=== PATIENT | male | born 1960 | race African-American/Black ===

== ENCOUNTER 2016-10-17 14:51 | Inpatient (IN) | payer OTHER ==
[2016-10-17 16:26] VITALS: BMI 24.9
--- NOTE | 2016-10-17 17:52 | HP ---
Admission ROS S - [facility] Chief Complaint: I WANT TO GO TO REHAB Allergies/Adverse Reactions: Allergies Allergy/AdvReac Type Severity Reaction Status Date / Time No Known Allergies Allergy Verified 10/17/16 17:25 History of Present Illness: 55 YEARS OLD MALE WITH LONG HISTORY OF ALCOHOL HEROIN NICOTINE DEPENDENCE, HYPERTENSION DENIES MENTAL ILLNESS IS ADMITTED TO REHAB Exam Limitations: No Limitations - Ebola screening Have you traveled outside of the country in the last 21 days: No (N) Have you had contact with anyone from an Ebola affected area: No Have you been sick,other than usual withdrawal symptoms: No Do you have a fever: No - Review of Systems Constitutional: Unintentional Wgt. Loss EENT: reports: No Symptoms Reported Respiratory: reports: No Symptoms reported Cardiac: reports: No Symptoms Reported GI: reports: No Symptoms Reported : reports: No Symptoms Reported Musculoskeletal: reports: No Symptoms Reported Integumentary: reports: No Symptoms Reported Neuro: reports: No Symptoms reported Endocrine: reports: Intolerance to Cold Hematology: reports: No Symptoms Reported Psychiatric: reports: Judgement Intact, Mood/Affect Appropiate, Orientated x3 Other Systems: Reviewed and Negative Patient History - Patient Medical History Hx Anemia: No Hx Asthma: No Hx Chronic Obstructive Pulmonary Disease (COPD): No Hx Cancer: No Hx Cardiac Disorders: No Hx Congestive Heart Failure: No Hx Hypertension: No Hx Hypercholesterolemia: No Hx Pacemaker: No HX Cerebrovascular Accident: No Hx Seizures: No Hx Dementia: No Hx Diabetes: No Hx Gastrointestinal Disorders: No Hx Liver Disease: No Hx Genitourinary Disorders: No Hx Sexually Transmitted Disorders: Yes (gonorrhea at age 16) Hx Renal Disease (ESRD): No Hx Thyroid Disease: No Hx Human Immunodeficiency Virus (HIV): No (LAST 04/13 NEGATIVE) Hx Hepatitis C: Yes Hx Depression: Yes (ON CELEXA) Hx Suicide Attempt: No (DENIES) Hx Bipolar Disorder: No Hx Schizophrenia: No - Patient Surgical History Past Surgical History: Yes Hx Neurologic Surgery: No Hx Cataract Extraction: No Hx Cardiac Surgery: No Hx Lung Surgery: No Hx Breast Surgery: No Hx Breast Biopsy: No Hx Abdominal Surgery: Yes (umbilical hernia repair in 1997) Hx Appendectomy: No Hx Cholecystectomy: No Hx Genitourinary Surgery: No Hx Orthopedic Surgery: No Other Surgical History: UMBILICAL HERNIA -1997 Anesthesia Reaction: No - PPD History Previous Implant?: Yes Documented Results: Negative w/proof Implanted On Prior [facility] Admission?: Yes Date: 06/20/16 Results: 0 mm PPD to be Administered?: No - Smoking Cessation Smoking history: Current every day smoker Have you smoked in the past 12 months: Yes Aproximately how many cigarettes per day: 15 Cigars Per Day: 0 Hx Chewing Tobacco Use: No Initiated information on smoking cessation: Yes 'Breaking Loose' booklet given: 10/17/16 - Substance & Tx. History Hx Alcohol Use: Yes Hx Substance Use: Yes Substance Use Type: Alcohol, Cocaine, Heroin, Marijuana Hx Substance Use Treatment: Yes - Substances Abused Alcohol Route: Oral Frequency: Daily Amount used: FITH VOLKA Age of first use: 12 Date of Last Use: 10/12/16 Heroin Route: Inhalation Frequency: Daily Amount used: 10-12 BAGS Age of first use: 15 Date of Last Use: 10/12/16 Family Disease History - Family Disease History Family Disease History: CA: Mother (RECOVERING FROM BREAST CA.), Other: Father ( ETOH DEPENDENT) Admission Physical Exam S - Vital Signs Vital Signs: Vital Signs - 24 hr 10/17/16 16:23 Temperature 95.9 F L Pulse Rate 62 Respiratory 16 Rate Blood Pressure 150/100 - Physical General Appearance: Yes: No Apparent Distress, Appropriately Dressed, Thin HEENTM: Yes: Hearing grossly Normal, Normal ENT Inspection, Normocephalic, Normal Voice Respiratory: Yes: Chest Non-Tender, Lungs Clear, Normal Breath Sounds, No Respiratory Distress, No Accessory Muscle Use Neck: Yes: Supple, Trachea in good position Breast: Yes: Breasts Symetrical Cardiology: Yes: Regular Rhythm, Regular Rate, S1, S2 Abdominal: Yes: Normal Bowel Sounds, Non Tender, Soft Genitourinary: Yes: Within Normal Limits Back: Yes: Normal Inspection Musculoskeletal: Yes: full range of Motion, Gait Steady Extremities: Yes: Normal Range of Motion, Non-Tender Neurological: Yes: Fully Oriented, Alert, Motor Strength 5/5, Normal Response, Depressed Affect Integumentary: Yes: Dry, Warm Lymphatic: Yes: Within Normal Limits - Diagnostic (1) Alcohol dependence with uncomplicated withdrawal Current Visit: Yes Status: Acute (2) Nicotine dependence Current Visit: Yes Status: Acute Qualifiers: Nicotine product type: cigarettes Substance use status: uncomplicated Qualified Code(s): F17.210 - Nicotine dependence, cigarettes, uncomplicated (3) Opioid dependence with withdrawal Current Visit: Yes Status: Acute (4) Weight loss Current Visit: Yes Status: Acute (5) HTN (hypertension) Current Visit: Yes Status: Chronic Qualifiers: Hypertension type: essential hypertension Qualified Code(s): I10 - Essential (primary) hypertension (6) Hepatitis C Current Visit: Yes Status: Chronic Qualifiers: Viral hepatitis chronicity: chronic Hepatic coma status: without hepatic coma Qualified Code(s): B18.2 - Chronic viral hepatitis C (7) Depressive disorder Current Visit: Yes Status: Suspected (8) Dental neglect Current Visit: Yes Status: Chronic Comment: UPPER TEETH MISSING Cleared for Admission S - Detox or Rehab [facility] Level of Care: Observation Bed Claeared for Rehab Admission: Yes [facility] Breath Alcohol Content Breath Alcohol Content: 0 Vital Signs - Vital Signs Vital Signs Refused: No Temperature: 95.9 F Temperature Source: Oral Pulse Rate: 62 Respiratory Rate: 16 Blood Pressure: 150/100 BP Location: Left Arm Blood Pressure Position: Sitting - Height Height: 5 ft 7 in - Weight Weight: 159 lb Weight Measurement Method: Standing Scale Body Mass Index (BMI): 24.9 - Bowel Function Bowel Movement: Yes Urine Drug Screen - Control Is Test Valid: Yes - Results Drug Screen Negative: No Urine Drug Screen Results: THC-Marijuana, BZO-Benzodiazepines, MTD-Methadone
[2016-10-17] MEDS ORDERED: IBUPROFEN 400 MG TABLET (FP) PO PRN (17:53)
[2016-10-17] MEDS ORDERED: MAGNESIUM CITRATE 300 ML BOTTLE PO PRN (17:53)
[2016-10-17] MEDS ORDERED: MAG HYDROX/AL HYDROX/SIMETH 30 ML UNIT-DOSE CUP PO PRN (17:53)
[2016-10-17] MEDS ORDERED: ACETAMINOPHEN 325 MG TABLET (FP) PO PRN (17:53)
[2016-10-17] MEDS ORDERED: P-EPHED 60MG/TRIPROLIDI 2.5MG TABLET PO PRN (17:53)
[2016-10-17] MEDS ORDERED: NICOTINE POLACRILEX 2 MG GUM BC PRN (17:53)
[2016-10-17] MEDS ORDERED: hydrOXYzine PAMOATE 50 MG CAPSULE (FP) PO PRN (17:53)
[2016-10-17] MEDS ORDERED: MAGNESIUM HYDROX 2400MG/30ML ORAL SUSPENSION 30 ML CUP PO PRN (17:53)
[2016-10-17] MEDS ORDERED: guaiFENesin/D-METHORPHAN HB 10 ML UNIT-DOSE CUPS PO PRN (17:53)
[2016-10-17] MEDS ORDERED: MENTHOL/PHENOL 1 EACH UD MM PRN (17:53)
[2016-10-17] MEDS: THIAMINE HCL 100 MG TABLET (FP) PO SCH (22:19)
[2016-10-17] MEDS: diphenhydrAMINE HCL 50 MG CAPSULE PO PRN (22:19)
[2016-10-17] MEDS: COLLOIDAL OATMEAL 1 BAR EACH TP PRN (22:20)
[2016-10-17] MEDS: MINERAL OIL/PETROLAT/WATER TOPICAL CREAM 113 GM JAR TP SCH (22:22)
[2016-10-17 22:47] LABS: URINE APPEARANCE SLCLOUDY; URINE BILIRUBIN NEGATIVE (NEGATIVE); URINE BLOOD NEGATIVE (NEGATIVE); URINE COLOR YELLOW; URINE GLUCOSE (UA) NEGATIVE (NEGATIVE); URINE KETONE NEGATIVE (NEGATIVE); URINE NITRITE NEGATIVE (NEGATIVE); URINE PROTEIN NEGATIVE (NEGATIVE); URINE UROBILINOGEN NEGATIVE E.U./dl (0.2-1.0)
[2016-10-17 22:54] LABS: URINE LEUK ESTERASE TRACE (NEGATIVE)
[2016-10-17 23:16] LABS: URINE WBC 1 /hpf (3-5)
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
[2016-10-18] MEDS: PRENATAL VITAMINS W/ FOLIC ACID TABLET (FP) PO SCH (10:06)
[2016-10-18] MEDS: NICOTINE 21 MG/24 HOURS TOPICAL PATCH TD SCH (10:07)
[2016-10-18 10:29] LABS: MCH 31.6 pg (25.7-33.7); MCHC 33.2 g/dl (32.0-35.9); MEAN CELL VOLUME 95.3 fl (80-96); MEAN PLT VOLUME 9.1 fl (7.5-11.1); PLATELET COUNT 194 K/MM3 (134-434); RDW 14.6 % (11.9-15.9); WHITE BLOOD COUNT 4.7 K/mm3 (4.0-10.0)
[2016-10-18 10:47] LABS: ALBUMIN 3.7 g/dl (3.4-5.0); CALCIUM 8.6 mg/dL (8.5-10.1); CREATININE 1.3 mg/dL (0.7-1.3)
[2016-10-18 10:49] LABS: BILIRUBIN,TOTAL 0.5 mg/dL (0.2-1.0); TOT PROT 6.9 g/dl (6.4-8.2)
[2016-10-18] MEDS: CITALOPRAM HYDROBROMIDE 10 MG TABLET (FP) PO SCH (12:33)
[2016-10-18] MEDS: MINERAL OIL/PETROLAT/WATER TOPICAL CREAM 113 GM JAR TP SCH (21:21)
[2016-10-18] MEDS: THIAMINE HCL 100 MG TABLET (FP) PO SCH (21:21)
[2016-10-18] MEDS: diphenhydrAMINE HCL 50 MG CAPSULE PO PRN (21:21)
[2016-10-19] MEDS: CITALOPRAM HYDROBROMIDE 10 MG TABLET (FP) PO SCH (10:00)
[2016-10-19] MEDS: PRENATAL VITAMINS W/ FOLIC ACID TABLET (FP) PO SCH (10:00)
[2016-10-19] MEDS: NICOTINE 21 MG/24 HOURS TOPICAL PATCH TD SCH (10:01)
[2016-10-19] MEDS: MINERAL OIL/PETROLAT/WATER TOPICAL CREAM 113 GM JAR TP SCH (22:09)
[2016-10-19] MEDS: THIAMINE HCL 100 MG TABLET (FP) PO SCH (22:09)
[2016-10-20] MEDS: PRENATAL VITAMINS W/ FOLIC ACID TABLET (FP) PO SCH (09:52)
[2016-10-20] MEDS: NICOTINE 21 MG/24 HOURS TOPICAL PATCH TD SCH (09:53)
[2016-10-20] MEDS: CITALOPRAM HYDROBROMIDE 10 MG TABLET (FP) PO SCH (09:53)
[2016-10-20] MEDS: THIAMINE HCL 100 MG TABLET (FP) PO SCH (21:30)
[2016-10-20] MEDS: diphenhydrAMINE HCL 50 MG CAPSULE PO PRN (21:30)
[2016-10-20] MEDS: MINERAL OIL/PETROLAT/WATER TOPICAL CREAM 113 GM JAR TP SCH (21:31)
[2016-10-21] MEDS: PRENATAL VITAMINS W/ FOLIC ACID TABLET (FP) PO SCH (10:05)
[2016-10-21] MEDS: CITALOPRAM HYDROBROMIDE 10 MG TABLET (FP) PO SCH (10:05)
[2016-10-21] MEDS: NICOTINE 21 MG/24 HOURS TOPICAL PATCH TD SCH (10:06)
[2016-10-21] MEDS: MINERAL OIL/PETROLAT/WATER TOPICAL CREAM 113 GM JAR TP SCH (21:29)
[2016-10-21] MEDS: diphenhydrAMINE HCL 50 MG CAPSULE PO PRN (21:29)
[2016-10-21] MEDS: THIAMINE HCL 100 MG TABLET (FP) PO SCH (21:29)
[2016-10-22] MEDS: CITALOPRAM HYDROBROMIDE 10 MG TABLET (FP) PO SCH (10:00)
[2016-10-22] MEDS: NICOTINE 21 MG/24 HOURS TOPICAL PATCH TD SCH (10:01)
[2016-10-22] MEDS: PRENATAL VITAMINS W/ FOLIC ACID TABLET (FP) PO SCH (10:01)
[2016-10-22] MEDS: THIAMINE HCL 100 MG TABLET (FP) PO SCH (21:46)
[2016-10-22] MEDS: diphenhydrAMINE HCL 50 MG CAPSULE PO PRN (21:46)
[2016-10-22] MEDS: cloNIDine HCL 0.1 MG TABLET PO PRN (21:47)
[2016-10-22] MEDS: MINERAL OIL/PETROLAT/WATER TOPICAL CREAM 113 GM JAR TP SCH (22:15)
[2016-10-23] MEDS: PRENATAL VITAMINS W/ FOLIC ACID TABLET (FP) PO SCH (10:07)
[2016-10-23] MEDS: CITALOPRAM HYDROBROMIDE 10 MG TABLET (FP) PO SCH (10:07)
[2016-10-23] MEDS: NICOTINE 21 MG/24 HOURS TOPICAL PATCH TD SCH (10:07)
[2016-10-23] MEDS: diphenhydrAMINE HCL 50 MG CAPSULE PO PRN (21:28)
[2016-10-23] MEDS: THIAMINE HCL 100 MG TABLET (FP) PO SCH (21:28)
[2016-10-23] MEDS: MINERAL OIL/PETROLAT/WATER TOPICAL CREAM 113 GM JAR TP SCH (21:29)
[2016-10-23] MEDS: cloNIDine HCL 0.1 MG TABLET PO PRN (21:29)
[2016-10-24] MEDS: NICOTINE 21 MG/24 HOURS TOPICAL PATCH TD SCH (10:07)
[2016-10-24] MEDS: CITALOPRAM HYDROBROMIDE 10 MG TABLET (FP) PO SCH (10:07)
[2016-10-24] MEDS: PRENATAL VITAMINS W/ FOLIC ACID TABLET (FP) PO SCH (10:07)
[2016-10-24] MEDS: LOPERAMIDE HCL 2 MG CAPSULE PO PRN (14:29)
[2016-10-24] MEDS: diphenhydrAMINE HCL 50 MG CAPSULE PO PRN (21:25)
[2016-10-24] MEDS: THIAMINE HCL 100 MG TABLET (FP) PO SCH (21:25)
[2016-10-24] MEDS: cloNIDine HCL 0.1 MG TABLET PO PRN (21:25)
[2016-10-24] MEDS: MINERAL OIL/PETROLAT/WATER TOPICAL CREAM 113 GM JAR TP SCH (21:25)
[2016-10-25] MEDS: PRENATAL VITAMINS W/ FOLIC ACID TABLET (FP) PO SCH (09:49)
[2016-10-25] MEDS: NICOTINE 21 MG/24 HOURS TOPICAL PATCH TD SCH (09:49)
[2016-10-25] MEDS: CITALOPRAM HYDROBROMIDE 10 MG TABLET (FP) PO SCH (09:49)
[2016-10-25 20:03] LABS: URINE APPEARANCE CLEAR; URINE BILIRUBIN NEGATIVE (NEGATIVE); URINE BLOOD NEGATIVE (NEGATIVE); URINE COLOR YELLOW; URINE GLUCOSE (UA) NEGATIVE (NEGATIVE); URINE KETONE NEGATIVE (NEGATIVE); URINE NITRITE NEGATIVE (NEGATIVE); URINE PROTEIN NEGATIVE (NEGATIVE); URINE UROBILINOGEN NEGATIVE E.U./dl (0.2-1.0)
[2016-10-25 20:04] LABS: URINE LEUK ESTERASE TRACE (NEGATIVE)
[2016-10-25 20:15] LABS: URINE MUCUS RARE; URINE RBC 3 /hpf (0-3); URINE WBC 5 /hpf (3-5)
[2016-10-25] MEDS: THIAMINE HCL 100 MG TABLET (FP) PO SCH (21:26)
[2016-10-25] MEDS: diphenhydrAMINE HCL 50 MG CAPSULE PO PRN (21:26)
[2016-10-25] MEDS: cloNIDine HCL 0.1 MG TABLET PO PRN (21:26)
[2016-10-25] MEDS: MINERAL OIL/PETROLAT/WATER TOPICAL CREAM 113 GM JAR TP SCH (21:28)
[2016-10-26] MEDS: PRENATAL VITAMINS W/ FOLIC ACID TABLET (FP) PO SCH (09:49)
[2016-10-26] MEDS: NICOTINE 21 MG/24 HOURS TOPICAL PATCH TD SCH (09:49)
[2016-10-26] MEDS: CITALOPRAM HYDROBROMIDE 10 MG TABLET (FP) PO SCH (09:49)
[2016-10-26] MEDS: COLLOIDAL OATMEAL 1 BAR EACH TP PRN (21:22)
[2016-10-26] MEDS: THIAMINE HCL 100 MG TABLET (FP) PO SCH (21:24)
[2016-10-26] MEDS: diphenhydrAMINE HCL 50 MG CAPSULE PO PRN (21:24)
[2016-10-26] MEDS: cloNIDine HCL 0.1 MG TABLET PO PRN (21:24)
[2016-10-26] MEDS: MINERAL OIL/PETROLAT/WATER TOPICAL CREAM 113 GM JAR TP SCH (21:25)
[2016-10-27] MEDS: CITALOPRAM HYDROBROMIDE 10 MG TABLET (FP) PO SCH (09:44)
[2016-10-27] MEDS: PRENATAL VITAMINS W/ FOLIC ACID TABLET (FP) PO SCH (09:44)
[2016-10-27] MEDS: NICOTINE 21 MG/24 HOURS TOPICAL PATCH TD SCH (09:45)
[2016-10-27] MEDS: THIAMINE HCL 100 MG TABLET (FP) PO SCH (21:20)
[2016-10-27] MEDS: diphenhydrAMINE HCL 50 MG CAPSULE PO PRN (21:20)
[2016-10-27] MEDS: cloNIDine HCL 0.1 MG TABLET PO PRN (21:20)
[2016-10-27] MEDS: MINERAL OIL/PETROLAT/WATER TOPICAL CREAM 113 GM JAR TP SCH (21:36)
[2016-10-28] MEDS: CITALOPRAM HYDROBROMIDE 10 MG TABLET (FP) PO SCH (09:53)
[2016-10-28] MEDS: PRENATAL VITAMINS W/ FOLIC ACID TABLET (FP) PO SCH (09:53)
[2016-10-28] MEDS: NICOTINE 21 MG/24 HOURS TOPICAL PATCH TD SCH (09:53)
[2016-10-28] MEDS: COLLOIDAL OATMEAL 1 BAR EACH TP PRN (20:53)
[2016-10-28] MEDS: THIAMINE HCL 100 MG TABLET (FP) PO SCH (21:42)
[2016-10-28] MEDS: diphenhydrAMINE HCL 50 MG CAPSULE PO PRN (21:42)
[2016-10-28] MEDS: cloNIDine HCL 0.1 MG TABLET PO PRN (21:42)
[2016-10-28] MEDS: MINERAL OIL/PETROLAT/WATER TOPICAL CREAM 113 GM JAR TP SCH (21:43)
[2016-10-29] MEDS: LOPERAMIDE HCL 2 MG CAPSULE PO PRN ×2 (03:53→09:49)
[2016-10-29] MEDS: CITALOPRAM HYDROBROMIDE 10 MG TABLET (FP) PO SCH (09:48)
[2016-10-29] MEDS: PRENATAL VITAMINS W/ FOLIC ACID TABLET (FP) PO SCH (09:49)
[2016-10-29] MEDS: NICOTINE 21 MG/24 HOURS TOPICAL PATCH TD SCH (09:49)
[2016-10-29] MEDS: diphenhydrAMINE HCL 50 MG CAPSULE PO PRN (21:32)
[2016-10-29] MEDS: THIAMINE HCL 100 MG TABLET (FP) PO SCH (21:32)
[2016-10-29] MEDS: cloNIDine HCL 0.1 MG TABLET PO PRN (21:32)
[2016-10-29] MEDS: MINERAL OIL/PETROLAT/WATER TOPICAL CREAM 113 GM JAR TP SCH (22:32)
[2016-10-30] MEDS: LOPERAMIDE HCL 2 MG CAPSULE PO PRN (07:34)
[2016-10-30] MEDS: PRENATAL VITAMINS W/ FOLIC ACID TABLET (FP) PO SCH (09:41)
[2016-10-30] MEDS: NICOTINE 21 MG/24 HOURS TOPICAL PATCH TD SCH (09:41)
[2016-10-30] MEDS: CITALOPRAM HYDROBROMIDE 10 MG TABLET (FP) PO SCH (09:41)
[2016-10-30] MEDS: diphenhydrAMINE HCL 50 MG CAPSULE PO PRN (21:11)
[2016-10-30] MEDS: cloNIDine HCL 0.1 MG TABLET PO PRN (21:11)
[2016-10-30] MEDS: THIAMINE HCL 100 MG TABLET (FP) PO SCH (21:11)
[2016-10-30] MEDS: MINERAL OIL/PETROLAT/WATER TOPICAL CREAM 113 GM JAR TP SCH (21:12)
[2016-10-31 06:44] VITALS: BP 137/78; PULSE 58; TEMP 98.3
[2016-10-31] MEDS: PRENATAL VITAMINS W/ FOLIC ACID TABLET (FP) PO SCH (09:07)
[2016-10-31] MEDS: CITALOPRAM HYDROBROMIDE 10 MG TABLET (FP) PO SCH (09:07)
[2016-10-31] MEDS: NICOTINE 21 MG/24 HOURS TOPICAL PATCH TD SCH (09:08)
--- NOTE | 2016-10-31 09:13 | PN ---
Psychiatric Progress Note Vital Signs: Vital Signs Period Temp Pulse Resp BP Sys/Rivera Pulse Ox Last 24 Hr 98.3 F 55-58 16-18 137-145/78-94 Date of Session: 10/31/16 Chief Complaint:: Psychiatrist Discharge Note HPI: Patient addressing Alcohol and Opoid Dependence comorbid with Nicotine Dependence, Anxiety Disorder and MDD, recurrent episode, moderate ROS: HTN, Hepatitis C were medically managed Current Medications: Active Medications Generic Name Dose Route Start Last Admin Trade Name Freq PRN Reason Stop Dose Admin Acetaminophen 650 mg 10/17/16 17:53 Tylenol - PO Q4H PRN PAIN Al Hydroxide/Mg Hydroxide 30 ml 10/17/16 17:53 10/20/16 11:48 Mylanta Oral Suspension - PO 30 ml Q6H PRN Administration DYSPEPSIA Citalopram Hydrobromide 10 mg 10/18/16 10:45 10/30/16 09:41 Celexa - PO 10 mg DAILY YVETTE Administration Clonidine 0.1 mg 10/17/16 17:55 10/30/16 21:11 Catapres - PO 0.1 mg Q8H PRN Administration HYPERTENSION Colloidal Oatmeal 1 applic 10/17/16 17:54 10/28/16 20:53 Aveeno Soap - TP 1 applic DAILY PRN Administration HYGEINE Diphenhydramine HCl 50 mg 10/17/16 17:53 10/30/16 21:11 Benadryl - PO 50 mg HSMR1 PRN Administration INSOMNIA Eucalyptus/Menthol/Phenol/Sorbitol 1 each 10/17/16 17:53 Cepastat Lozenge - MM Q4H PRN SORE THROAT Guaifenesin 10 ml 10/17/16 17:53 Robitussin Dm - PO Q6H PRN COUGH Hydroxyzine Pamoate 50 mg 10/17/16 17:53 Vistaril - PO Q4H PRN AGITATION Ibuprofen 400 mg 10/17/16 17:53 Motrin - PO Q6H PRN SEVERE PAIN Loperamide HCl 4 mg 10/17/16 17:53 10/30/16 07:34 Imodium - PO 4 mg Q6H PRN Administration DIARRHEA Magnesium Citrate 300 ml 10/17/16 17:53 Citroma - PO Q48H PRN CONSTIPATION Magnesium Hydroxide 30 ml 10/17/16 17:53 Milk Of Magnesia - PO DAILY PRN CONSTIPATION Multi-Ingredient Lotion 1 applic 10/17/16 22:00 10/30/16 21:12 Eucerin (Small Jar) - TP 1 applic HS YVETTE Administration Nicotine 21 mg 10/18/16 10:00 10/30/16 09:41 Nicoderm Patch - TD Not Given DAILY YVETTE Nicotine Polacrilex 2 mg 10/17/16 17:53 10/18/16 10:06 Nicorette Gum - BC 2 mg Q2H PRN Administration NICOTINE REPLACEMENT RX Multivit/Folic Acid/Iron 1 tab 10/18/16 10:00 10/30/16 09:41 Vitamins ([facility]) - PO 1 tab DAILY YVETTE Administration Pseudoephedrine/Triprolidine 1 combo 10/17/16 17:53 Actifed - PO TID PRN NASAL CONGESTION Thiamine HCl 100 mg 10/17/16 22:00 10/30/16 21:11 Vitamin B1 - PO 100 mg HS YVETTE Administration Current Side Effect: No Lab tests ordered: No Lab tests reviewed: Yes Provider note:: Patient has completed this program. He has met his treatment goals and will addressed his issues at outpatient treatment at [facility]. Told newspaper writer that from his participation in this program, he has acquired the tools that he needed to maintain abstinence. He responed well to Celexa 10 mg po daily. Script for 30 days supply of that medication is electronically transmitted to [facility] at [address] [place] [address]. He is stable for discharge today Total face to face time:: 35 Mental Status Exam - Mental Status Exam Alert and Oriented to: Time, Place, Person Cognitive Function: Fair Patient Appearance: Well Groomed Mood: Hopeful, Euthymic Affect: Appropriate Patient Behavior: Cooperative Speech Pattern: Clear Voice Loudness: Normal, Limited Variation Thought Disorder: Not Present Hallucinations: Denies Suicidal Ideation: Denies Homicidal Ideation: Denies Insight/Judgement: Fair Sleep: Fair Appetite: Good Muscle strength/Tone: Normal Gait/Station: Normal Psychiatric Treatment Plan - Problem List (1) Alcohol dependence with uncomplicated withdrawal Current Visit: Yes (2) Opioid dependence with withdrawal Current Visit: Yes (3) Nicotine dependence Current Visit: Yes Qualifiers: Nicotine product type: cigarettes Substance use status: uncomplicated Qualified Code(s): F17.210 - Nicotine dependence, cigarettes, uncomplicated (4) Anxiety disorder Current Visit: Yes (5) MDD (major depressive disorder), recurrent episode, moderate Current Visit: Yes (6) Dental neglect Current Visit: Yes Comment: UPPER TEETH MISSING (7) HTN (hypertension) Current Visit: Yes Qualifiers: Hypertension type: essential hypertension Qualified Code(s): I10 - Essential (primary) hypertension (8) Hepatitis C Current Visit: Yes Qualifiers: Viral hepatitis chronicity: chronic Hepatic coma status: without hepatic coma Qualified Code(s): B18.2 - Chronic viral hepatitis C Initial treatment plan: Patient is discharged today and referred to [facility] for outpatient treatment
== END 2016-10-31 09:15 | disposition home or self-care (01) | DRG 772 ==
LOC: YASAS 14:51 → Y3W 18:35
PROVIDERS: ADMIT Psychiatry & Neurology Psychiatry; ATTEND Psychiatry & Neurology Psychiatry
PROC: HZ42ZZZ Group Counseling for Substance Abuse Treatment, Cognitive-Behavioral (ICD-10-PCS; principal; 2016-10-17)
DX: F11.20 Opioid dependence, uncomplicated (principal); F10.20 Alcohol dependence, uncomplicated; F17.210 Nicotine dependence, cigarettes, uncomplicated; F41.9 Anxiety disorder, unspecified; F33.1 Major depressive disorder, recurrent, moderate; I10 Essential (primary) hypertension; B18.2 Chronic viral hepatitis C; K08.409 Partial loss of teeth, unspecified cause, unspecified class; Z87.438 Personal history of other diseases of male genital organs; Z87.898 Personal history of other specified conditions
CPT/HCPCS: 36415; 80053; 81003; 81015; 84153; 85027; 86593; 93005; 93010

== ENCOUNTER 2017-05-17 08:44 | Inpatient (IN) | payer OTHER ==
[2017-05-17 09:49] VITALS: BMI 23.5
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
[2017-05-17] MEDS ORDERED: MAGNESIUM CITRATE 300 ML BOTTLE PO PRN (13:19)
[2017-05-17] MEDS ORDERED: MAG HYDROX/AL HYDROX/SIMETH 30 ML UNIT-DOSE CUP PO PRN (13:19)
[2017-05-17] MEDS ORDERED: ACETAMINOPHEN 325 MG TABLET (FP) PO PRN (13:19)
[2017-05-17] MEDS ORDERED: NICOTINE POLACRILEX 4 MG GUM BC PRN (13:19)
[2017-05-17] MEDS ORDERED: guaiFENesin/D-METHORPHAN HB 10 ML UNIT-DOSE CUPS PO PRN (13:19)
[2017-05-17] MEDS ORDERED: IBUPROFEN 400 MG TABLET (FP) PO PRN (13:19)
[2017-05-17] MEDS ORDERED: P-EPHED 60MG/TRIPROLIDI 2.5MG TABLET PO PRN (13:19)
[2017-05-17] MEDS ORDERED: LOPERAMIDE HCL 2 MG CAPSULE PO PRN (13:19)
[2017-05-17] MEDS ORDERED: MAGNESIUM HYDROX 2400MG/30ML ORAL SUSPENSION 30 ML CUP PO PRN (13:19)
[2017-05-17] MEDS ORDERED: MENTHOL/PHENOL 1 EACH UD MM PRN (13:19)
[2017-05-17] MEDS ORDERED: COLLOIDAL OATMEAL 1 BAR EACH TP PRN (13:22)
[2017-05-17] MEDS ORDERED: diazePAM 5 MG TABLET PO ONE (14:00)
[2017-05-17] MEDS ORDERED: METHADONE HCL 10 MG TABLET (FOR DETOX USE ONLY) PO ONE ×2 (14:00→23:00)
[2017-05-17] MEDS: NICOTINE 21 MG/24 HOURS TOPICAL PATCH TD SCH (14:30)
[2017-05-17] MEDS: TOLNAFTATE 1% CREAM 15 GM TUBE TP SCH ×2 (14:30→22:34)
[2017-05-17] MEDS: AMMONIUM LACTATE 12% LOTION 225 GM BOTTLE TP SCH (15:09)
[2017-05-17] MEDS: diazePAM 5 MG TABLET PO SCH ×2 (15:10→22:33)
[2017-05-17 15:42] LABS: URINE APPEARANCE CLEAR; URINE BILIRUBIN NEGATIVE (NEGATIVE); URINE BLOOD NEGATIVE (NEGATIVE); URINE COLOR YELLOW; URINE GLUCOSE (UA) NEGATIVE (NEGATIVE); URINE KETONE NEGATIVE (NEGATIVE); URINE LEUK ESTERASE NEGATIVE (NEGATIVE); URINE NITRITE NEGATIVE (NEGATIVE); URINE PROTEIN NEGATIVE (NEGATIVE); URINE UROBILINOGEN NEGATIVE mg/dL (0.2-1.0)
--- NOTE | 2017-05-17 16:37 | EKG ---
Test Reason : Blood Pressure : / mmHG Vent. Rate : 056 BPM Atrial Rate : 056 BPM P-R Int : 150 ms QRS Dur : 078 ms QT Int : 450 ms P-R-T Axes : 070 057 048 degrees QTc Int : 434 ms SINUS BRADYCARDIA NONSPECIFIC T WAVE ABNORMALITY ABNORMAL ECG NO PREVIOUS ECGS AVAILABLE Confirmed by SHAHRIAR HARGROVE, CAPO ([id number]) on 05/17/2017 4:36:57 PM Referred By: Confirmed By:CAPO BESS MD
[2017-05-17 17:04] LABS: HIV 1 & 2 AB NEGATIVE; HIV 1 AGp24 NEGATIVE
[2017-05-17] MEDS: THIAMINE HCL 100 MG TABLET (FP) PO SCH (22:33)
[2017-05-17] MEDS: diphenhydrAMINE HCL 50 MG CAPSULE PO PRN (22:35)
[2017-05-18] MEDS: diazePAM 5 MG TABLET PO SCH ×3 (05:39→22:35)
[2017-05-18] MEDS ORDERED: METHADONE HCL 10 MG TABLET (FOR DETOX USE ONLY) PO SCH (10:00)
[2017-05-18 10:17] LABS: MCH 31.9 pg (25.7-33.7); MCHC 33.2 g/dl (32.0-35.9); MEAN CELL VOLUME 96.2 fl (80-96); MEAN PLT VOLUME 9.1 fl (7.5-11.1); PLATELET COUNT 194 K/MM3 (134-434); RDW 14.6 % (11.9-15.9); WHITE BLOOD COUNT 5.9 K/mm3 (4.0-10.0)
[2017-05-18] MEDS: NICOTINE 21 MG/24 HOURS TOPICAL PATCH TD SCH (10:40)
[2017-05-18] MEDS: TOLNAFTATE 1% CREAM 15 GM TUBE TP SCH ×2 (10:40→23:21)
[2017-05-18] MEDS: PRENATAL VITAMINS W/ FOLIC ACID TABLET (FP) PO SCH (10:40)
[2017-05-18] MEDS: AMMONIUM LACTATE 12% LOTION 225 GM BOTTLE TP SCH (10:42)
--- NOTE | 2017-05-18 10:42 | PN ---
S CIWA - CIWA Score Nausea/Vomitin Muscle Tremors: 3 Anxiety: 3 Agitation: 3 Paroxysmal Sweats: 1-Minimal Palms Moist Orientation: 0-Oriented Tacttile Disturbances: 1-Very Mild Itch/Numbness Auditory Disturbances: 1-Very Mild Visual Disturbances: 1-Very Mild Sensitivity Headache: 2-Mild CIWA-Ar Total Score: 18 S Progress Note (SOAP) Subjective: ALERT,IRRITABLE,ANXIOUS,INTERRUPTED SLEEP,TREMOR PAIN IN THE BODY Objective: 05/18/17 10:40 Vital Signs Temperature 98.6 F 05/18/17 10:00 Pulse Rate 67 05/18/17 10:00 Respiratory Rate 20 05/18/17 10:00 Blood Pressure 115/78 05/18/17 10:00 O2 Sat by Pulse Oximetry (%) EKG SINUS BRADYCARDIA 56/MIN NO CHEST PAIN,NO SOB,NO DIZZINESS Laboratory Last Values WBC 5.9 K/mm3 (4.0-10.0) 05/18/17 05:45 RBC 4.18 M/mm3 (4.00-5.60) 05/18/17 05:45 Hgb 13.3 GM/dL (11.7-16.9) 05/18/17 05:45 Hct 40.3 % (35.4-49) 05/18/17 05:45 MCV 96.2 fl (80-96) H 05/18/17 05:45 MCH 31.9 pg (25.7-33.7) 05/18/17 05:45 MCHC 33.2 g/dl (32.0-35.9) 05/18/17 05:45 RDW 14.6 % (11.9-15.9) 05/18/17 05:45 Plt Count 194 K/MM3 (134-434) 05/18/17 05:45 MPV 9.1 fl (7.5-11.1) 05/18/17 05:45 Urine Color Yellow 05/17/17 14:15 Urine Appearance Clear 05/17/17 14:15 Urine pH 5.0 (5.0-8.0) D 05/17/17 14:15 Ur Specific [place] >= 1.030 (1.005-1.025) H 05/17/17 14:15 Urine Protein Negative (NEGATIVE) 05/17/17 14:15 Urine Glucose (UA) Negative (NEGATIVE) 05/17/17 14:15 Urine Ketones Negative (NEGATIVE) 05/17/17 14:15 Urine Blood Negative (NEGATIVE) 05/17/17 14:15 Urine Nitrite Negative (NEGATIVE) 05/17/17 14:15 Urine Bilirubin Negative (NEGATIVE) 05/17/17 14:15 Urine Urobilinogen Negative mg/dL (0.2-1.0) 05/17/17 14:15 Ur Leukocyte Esterase Negative (NEGATIVE) 05/17/17 14:15 HIV 1&2 Antibody Screen Negative 05/17/17 14:15 HIV P24 Antigen Negative 05/17/17 14:15 LABS PENDING Assessment: 05/18/17 10:42 WITHDRAWAL SYMPTOM Plan: CONTINUE DETOX
[2017-05-18] MEDS: COLLOIDAL OATMEAL 1 BAR EACH TP PRN (10:43)
[2017-05-18 10:59] LABS: ALBUMIN 4.2 g/dl (3.4-5.0); ALK PHOS 58 U/L (45-117); ANION GAP 8 (8-16); BILIRUBIN,TOTAL 0.6 mg/dL (0.2-1.0); CALCIUM 9.2 mg/dL (8.5-10.1); CO2 31 mmol/L (21-32); CREATININE 1.2 mg/dL (0.7-1.3); GLUCOSE,RANDOM 92 mg/dL (74-106); SGOT/AST 21 U/L (15-37); SGPT/ALT 27 U/L (12-78); TOT PROT 7.6 g/dl (6.4-8.2)
--- NOTE | 2017-05-18 16:55 | CONSULT ---
[facility] Psychiatric Consult - Data Date of interview: 05/18/17 Admission source: [facility] Identifying data: Readmission to [facility] for this 55 y/o AA male seeking detox treatment on for heroin,cocaine and marijuana dependence.Patient is single,a father of one,domiciled,unemployed and supported on welfare. Substance Abuse History: Patient presents with an extensive history of substance abuse (alcohol since age 12,heroin at age 17,cocaine at age 13, marijuana since age 12).Snorting is his preferred method of cocaine/heroin.Used substances prior to this [facility] visit. Medical History: Past history of gonorrhea.Hepatitis C,hypertension and a history of surgery for umbilical hernia (1997). Psychiatric History: History of three psychiatric hospitalizations : [facility] x 2 (2013) and one admission to [facility] ( 2015).Diagnosed with MDD and prescribed celexa 10 mg/day.No OPD care since discharge from [facility] in October 2015.Patient reports that he was last on celexa six months ago during treatment at the [facility].He now requests to get back on that medication.Mr Merlos denies history of suicide attempts. Physical/Sexual Abuse/Trauma History: Patient denies. Additional Comment: Urine Drug Screen Results: THC-Marijuana, AYAD-Cocaine, OPI- Opiates.Noted. Mental Status Exam - Mental Status Exam Alert and Oriented to: Time, Place, Person Cognitive Function: Good Patient Appearance: Well Groomed Mood: Hopeful, Euthymic Affect: Appropriate, Normal Range Patient Behavior: Fatigued, Appropriate, Cooperative Speech Pattern: Clear Voice Loudness: Normal Thought Process: Goal Oriented Thought Disorder: Not Present Hallucinations: Denies Suicidal Ideation: Denies Homicidal Ideation: Denies Insight/Judgement: Poor Sleep: Poorly, Difficulty falling asleep (wants benadryl) Appetite: Good Muscle strength/Tone: Normal Gait/Station: Normal Psychiatric Findings - Problem List ([place] 1, 2,3) (1) Alcohol dependence with uncomplicated withdrawal Current Visit: Yes Status: Acute (2) Opioid dependence with withdrawal Current Visit: Yes Status: Acute (3) Cocaine dependence Current Visit: Yes Status: Acute (4) Nicotine dependence Current Visit: Yes Status: Acute Qualifiers: Nicotine product type: cigarettes Substance use status: in withdrawal Qualified Code(s): F17.213 - Nicotine dependence, cigarettes, with withdrawal (5) Drug-induced mood disorder Current Visit: Yes Status: Acute (6) HTN (hypertension), benign Current Visit: Yes Status: Chronic (7) Hepatitis C Current Visit: Yes Status: Chronic Qualifiers: Viral hepatitis chronicity: chronic Hepatic coma status: without hepatic coma Qualified Code(s): B18.2 - Chronic viral hepatitis C (8) Insomnia Current Visit: Yes Status: Acute - Initial Treatment Plan Initial Treatment Plan: Psychoeducation.Detoxification in progress.Celexa 10 mg po daily.Ordered at patient's request.Side effects/benefits discussed with the patient.Agrees with careplan.Observation.
[2017-05-18] MEDS: diazePAM 5 MG TABLET PO PRN (18:36)
[2017-05-18] MEDS: diphenhydrAMINE HCL 50 MG CAPSULE PO PRN (22:34)
[2017-05-18] MEDS: THIAMINE HCL 100 MG TABLET (FP) PO SCH (22:34)
[2017-05-19] MEDS: diazePAM 5 MG TABLET PO SCH ×2 (10:45→22:32)
[2017-05-19] MEDS: METHADONE HCL 5 MG TABLET (FOR DETOX USE ONLY) PO SCH (10:45)
[2017-05-19] MEDS: AMMONIUM LACTATE 12% LOTION 225 GM BOTTLE TP SCH (10:46)
[2017-05-19] MEDS: PRENATAL VITAMINS W/ FOLIC ACID TABLET (FP) PO SCH (10:46)
[2017-05-19] MEDS: NICOTINE 21 MG/24 HOURS TOPICAL PATCH TD SCH (10:46)
[2017-05-19] MEDS: TOLNAFTATE 1% CREAM 15 GM TUBE TP SCH ×2 (10:46→22:33)
--- NOTE | 2017-05-19 11:31 | PN ---
S CIWA - CIWA Score Nausea/Vomitin Muscle Tremors: 3 Anxiety: 3 Agitation: 2 Paroxysmal Sweats: 1-Minimal Palms Moist Orientation: 0-Oriented Tacttile Disturbances: 1-Very Mild Itch/Numbness Auditory Disturbances: 1-Very Mild Visual Disturbances: 1-Very Mild Sensitivity Headache: 2-Mild CIWA-Ar Total Score: 17 BHS Progress Note (SOAP) Subjective: alert,irritable,anxious,interrupted sleep,tremor Objective: 05/19/17 11:30 Vital Signs Temperature 97.3 F L 05/19/17 09:45 Pulse Rate 62 05/19/17 09:45 Respiratory Rate 18 05/19/17 09:45 Blood Pressure 130/90 05/19/17 09:45 O2 Sat by Pulse Oximetry (%) Laboratory Last Values WBC 5.9 K/mm3 (4.0-10.0) 05/18/17 05:45 RBC 4.18 M/mm3 (4.00-5.60) 05/18/17 05:45 Hgb 13.3 GM/dL (11.7-16.9) 05/18/17 05:45 Hct 40.3 % (35.4-49) 05/18/17 05:45 MCV 96.2 fl (80-96) H 05/18/17 05:45 MCH 31.9 pg (25.7-33.7) 05/18/17 05:45 MCHC 33.2 g/dl (32.0-35.9) 05/18/17 05:45 RDW 14.6 % (11.9-15.9) 05/18/17 05:45 Plt Count 194 K/MM3 (134-434) 05/18/17 05:45 MPV 9.1 fl (7.5-11.1) 05/18/17 05:45 Sodium 136 mmol/L (136-145) 05/18/17 05:45 Potassium 3.9 mmol/L (3.5-5.1) 05/18/17 05:45 Chloride 97 mmol/L (98-107) L 05/18/17 05:45 Carbon Dioxide 31 mmol/L (21-32) 05/18/17 05:45 Anion Gap 8 (8-16) 05/18/17 05:45 BUN 12 mg/dL (7-18) 05/18/17 05:45 Creatinine 1.2 mg/dL (0.7-1.3) 05/18/17 05:45 Creat Clearance w eGFR > 60 (>60) 05/18/17 05:45 Random Glucose 92 mg/dL (74-106) D 05/18/17 05:45 Calcium 9.2 mg/dL (8.5-10.1) 05/18/17 05:45 Total Bilirubin 0.6 mg/dL (0.2-1.0) 05/18/17 05:45 AST 21 U/L (15-37) 05/18/17 05:45 ALT 27 U/L (12-78) 05/18/17 05:45 Alkaline Phosphatase 58 U/L (45-117) 05/18/17 05:45 Total Protein 7.6 g/dl (6.4-8.2) 05/18/17 05:45 Albumin 4.2 g/dl (3.4-5.0) 05/18/17 05:45 Urine Color Yellow 05/17/17 14:15 Urine Appearance Clear 05/17/17 14:15 Urine pH 5.0 (5.0-8.0) D 05/17/17 14:15 Ur Specific [place] >= 1.030 (1.005-1.025) H 05/17/17 14:15 Urine Protein Negative (NEGATIVE) 05/17/17 14:15 Urine Glucose (UA) Negative (NEGATIVE) 05/17/17 14:15 Urine Ketones Negative (NEGATIVE) 05/17/17 14:15 Urine Blood Negative (NEGATIVE) 05/17/17 14:15 Urine Nitrite Negative (NEGATIVE) 05/17/17 14:15 Urine Bilirubin Negative (NEGATIVE) 05/17/17 14:15 Urine Urobilinogen Negative mg/dL (0.2-1.0) 05/17/17 14:15 Ur Leukocyte Esterase Negative (NEGATIVE) 05/17/17 14:15 RPR Titer Nonreactive (NONREACTIVE) 05/18/17 05:45 HIV 1&2 Antibody Screen Negative 05/17/17 14:15 HIV P24 Antigen Negative 05/17/17 14:15 Assessment: 05/19/17 11:30 withdrawal symptom Plan: continue detox
[2017-05-19] MEDS ORDERED: CYCLOBENZAPRINE HCL 10 MG TABLET (FP) PO PRN (11:38)
[2017-05-19] MEDS: diazePAM 5 MG TABLET PO PRN ×2 (12:45→17:30)
--- NOTE | 2017-05-19 17:25 | PN ---
[facility] Progress Note Note: Psychiatry Attending's note : Approached by patient.Issue : insomnia. Requests ambien. Side effects/benefits discussed. Made aware of potential for parasomnias. Ambien 5 mg po hs.Ordered.Patient agrees.
[2017-05-19] MEDS: THIAMINE HCL 100 MG TABLET (FP) PO SCH (22:31)
[2017-05-19] MEDS: ZOLPIDEM TARTRATE 5 MG TABLET PO SCH (22:31)
[2017-05-20] MEDS: diazePAM 5 MG TABLET PO PRN (00:46)
[2017-05-20] MEDS ORDERED: hydrOXYzine PAMOATE 25 MG CAPSULE (FP) PO PRN (09:43)
[2017-05-20] MEDS: diazePAM 5 MG TABLET PO SCH ×2 (10:17→22:29)
[2017-05-20] MEDS: METHADONE HCL 5 MG TABLET (FOR DETOX USE ONLY) PO SCH (10:17)
[2017-05-20] MEDS: PRENATAL VITAMINS W/ FOLIC ACID TABLET (FP) PO SCH (10:17)
--- NOTE | 2017-05-20 10:17 | PN ---
S Progress Note (SOAP) Subjective: ALERT,IRRITABLE,ANXIOUS,INTERRUPTED SLEEP Objective: 05/20/17 10:16 Vital Signs Temperature 98.4 F 05/20/17 09:53 Pulse Rate 56 L 05/20/17 09:53 Respiratory Rate 16 05/20/17 09:53 Blood Pressure 122/88 05/20/17 09:53 O2 Sat by Pulse Oximetry (%) Assessment: 05/20/17 10:16 WITHDRAWAL SYMPTOM Plan: CONTINUE DETOX,DISCHARGE IN AM
[2017-05-20] MEDS: AMMONIUM LACTATE 12% LOTION 225 GM BOTTLE TP SCH (10:20)
[2017-05-20] MEDS: BACITRACIN 15 GM TUBE TOPICAL OINTMENT TP SCH ×2 (11:08→22:29)
[2017-05-20] MEDS: NICOTINE 21 MG/24 HOURS TOPICAL PATCH TD SCH (11:08)
[2017-05-20] MEDS: TOLNAFTATE 1% CREAM 15 GM TUBE TP SCH ×2 (11:09→22:29)
[2017-05-20] MEDS: THIAMINE HCL 100 MG TABLET (FP) PO SCH (22:28)
[2017-05-20] MEDS: ZOLPIDEM TARTRATE 5 MG TABLET PO SCH (22:30)
[2017-05-21] MEDS: diphenhydrAMINE HCL 50 MG CAPSULE PO PRN (02:06)
[2017-05-21] MEDS ORDERED: diazePAM 5 MG TABLET PO SCH (10:00)
[2017-05-21] MEDS ORDERED: METHADONE HCL 10 MG TABLET (FOR DETOX USE ONLY) PO SCH (10:00)
[2017-05-21] MEDS: PRENATAL VITAMINS W/ FOLIC ACID TABLET (FP) PO SCH (10:18)
[2017-05-21] MEDS: NICOTINE 21 MG/24 HOURS TOPICAL PATCH TD SCH (10:18)
[2017-05-21] MEDS: TOLNAFTATE 1% CREAM 15 GM TUBE TP SCH ×2 (10:18→22:41)
[2017-05-21] MEDS: BACITRACIN 15 GM TUBE TOPICAL OINTMENT TP SCH (10:19)
[2017-05-21] MEDS: AMMONIUM LACTATE 12% LOTION 225 GM BOTTLE TP SCH (10:20)
--- NOTE | 2017-05-21 10:24 | PN ---
S Progress Note (SOAP) Subjective: ALERT,IRRITABLE,ANXIOUS,INTERRUPTED SLEEP Objective: 05/21/17 10:23 Vital Signs Temperature 97.7 F 05/21/17 09:59 Pulse Rate 55 L 05/21/17 09:59 Respiratory Rate 18 05/21/17 09:59 Blood Pressure 142/89 05/21/17 09:59 O2 Sat by Pulse Oximetry (%) Assessment: 05/21/17 10:23 WITHDRAWAL SYMPTOM Plan: CONTINUE DETOX,DISCHARGE IN AM
[2017-05-21] MEDS ORDERED: BACITRACIN 0.9 GM PACKET TP SCH (22:00)
[2017-05-21] MEDS: THIAMINE HCL 100 MG TABLET (FP) PO SCH (22:41)
[2017-05-21] MEDS: ZOLPIDEM TARTRATE 5 MG TABLET PO SCH (22:41)
[2017-05-22] MEDS ORDERED: METHADONE HCL 5 MG TABLET (FOR DETOX USE ONLY) PO SCH (06:00)
[2017-05-22 06:04] VITALS: BP 116/80; PULSE 62; TEMP 97.3
[2017-05-22] MEDS: COLLOIDAL OATMEAL 1 BAR EACH TP PRN (07:45)
--- NOTE | 2017-05-22 09:10 | DS ---
[facility] Detox Discharge Summary Admission Date: 05/17/17 Discharge Date: 05/22/17 - History Present History: Alcohol Dependence Additional Comments: FOLLOW UP WITH AFTER CARE PROGRAM ARRANGEMENT Pertinent Past History: NICOTINE DEPENDENCE WEIGHT LOSS HYPERTENSION HEPATITIS C TINEA PEDIS - Physical Exam Results Vital Signs: Vital Signs Temperature 97.3 F L 05/22/17 06:00 Pulse Rate 62 05/22/17 06:00 Respiratory Rate 18 05/22/17 06:00 Blood Pressure 116/80 05/22/17 06:00 O2 Sat by Pulse Oximetry (%) Pertinent Admission Physical Exam Findings: WITHDRAWAL SYMPTOM - Treatment Hospital Course: Detox Protocol Followed, Detoxed Safely, Responded well, Discharged Condition Good, Rehab Referral Accepted Patient has Accepted a Rehab Referral to: [facility] - Medication Discharge Medications: Ambulatory Orders NK [No Known Home Medication] 05/17/17 - Diagnosis (1) Alcohol dependence with uncomplicated withdrawal Current Visit: Yes Status: Acute (2) Nicotine dependence Current Visit: Yes Status: Acute Qualifiers: Nicotine product type: cigarettes Substance use status: in withdrawal Qualified Code(s): F17.213 - Nicotine dependence, cigarettes, with withdrawal (3) Opioid dependence with withdrawal Current Visit: Yes Status: Acute (4) Tinea pedis Current Visit: Yes Status: Acute (5) Dry skin Current Visit: Yes Status: Chronic (6) HTN (hypertension) Current Visit: Yes Status: Chronic Qualifiers: Hypertension type: essential hypertension Qualified Code(s): I10 - Essential (primary) hypertension (7) Hepatitis C Current Visit: Yes Status: Chronic Qualifiers: Viral hepatitis chronicity: chronic Hepatic coma status: without hepatic coma Qualified Code(s): B18.2 - Chronic viral hepatitis C - AMA Did Patient Leave Against Medical Advice: No
== END 2017-05-22 09:27 | disposition home or self-care (01) | DRG 773 ==
LOC: YASAS 08:44 → Y6N 12:24
PROVIDERS: ADMIT Internal Medicine Addiction Medicine; ATTEND Internal Medicine Addiction Medicine
PROC: HZ2ZZZZ Detoxification Services for Substance Abuse Treatment (ICD-10-PCS; principal; 2017-05-22)
DX: F11.23 Opioid dependence with withdrawal (principal); F10.230 Alcohol dependence with withdrawal, uncomplicated; F14.20 Cocaine dependence, uncomplicated; F17.213 Nicotine dependence, cigarettes, with withdrawal; F19.24 Other psychoactive substance dependence with psychoactive substance-induced mood disorder; G47.00 Insomnia, unspecified; I10 Essential (primary) hypertension; B18.2 Chronic viral hepatitis C; L85.3 Xerosis cutis; B35.3 Tinea pedis
CPT/HCPCS: 36415; 80053; 81003; 85027; 86593; 87389; 93005; 93010

== ENCOUNTER 2019-09-18 13:49 | Inpatient (IN) | payer OTHER ==
[2019-09-18 15:26] VITALS: BMI 24.3
--- NOTE | 2019-09-18 18:06 | HP ---
CIWA Score - Admission Criteria [facility] Guidelines: Admission for Medically Managed Detox: Requires at least one of the followin. CIWA greater than 12 2. Seizures within the past 24 hours 3. Delirium tremens within the past 24 hours 4. Hallucinations within the past 24 hours 5. Acute intervention needed for co occurring medical disorder 6. Acute intervention needed for co occurring psychiatric disorder 7. Severe withdrawal that cannot be handled at a lower level of care (continued vomiting, continued diarrhea, abnormal vital signs) requiring intravenous medication and/or fluids 8. Admitting History and Physical - Admission Chief Complaint: opioid and cocaine rehab History of Present Illness: Patient is a 58 yo AA male domicile with hx of heroin dependence is here seeking inpatient rehabilitation after completing inpatient detox at [facility]. Reports hx of unintentional opioid overdose x 2 with last episode two years. Reports no significant medical or psychiatric history. Denies SI/HI at this time. History Source: Patient Limitations to Obtaining History: No Limitations - Smoking History Smoking history: Current every day smoker Have you smoked in the past 12 months: Yes Aproximately how many cigarettes per day: 15 - Alcohol/Substance Use Hx Alcohol Use: Yes (VODKA/BEER) Admission [facility] Allergies/Adverse Reactions: Allergies Allergy/AdvReac Type Severity Reaction Status Date / Time No Known Allergies Allergy Verified 05/17/17 11:52 Exam Limitations: No Limitations - Ebola screening Have you traveled outside of the country in the last 21 days: No Have you had contact with anyone from an Ebola affected area: No Do you have a fever: No - Review of Systems Constitutional: Weakness, Unintentional Wgt. Loss EENT: reports: No Symptoms Reported Respiratory: reports: No Symptoms reported Cardiac: reports: No Symptoms Reported GI: reports: Poor Appetite, Poor Fluid Intake : reports: No Symptoms Reported Musculoskeletal: reports: No Symptoms Reported Integumentary: reports: No Symptoms Reported Neuro: reports: Headache Endocrine: reports: No Symptoms Reported Hematology: reports: No Symptoms Reported Psychiatric: reports: Mood/Affect Appropiate, Orientated x3 Other Systems: Reviewed and Negative Patient History - Patient Medical History Hx Anemia: No Hx Asthma: No Hx Chronic Obstructive Pulmonary Disease (COPD): No Hx Cancer: No Hx Cardiac Disorders: No Hx Congestive Heart Failure: No Hx Hypertension: Yes (non compliant with meds.) Hx Hypercholesterolemia: No Hx Pacemaker: No HX Cerebrovascular Accident: No Hx Seizures: No Hx Dementia: No Hx Diabetes: No Hx Gastrointestinal Disorders: No Hx Liver Disease: No Hx Genitourinary Disorders: No Hx Sexually Transmitted Disorders: No (GONORRHEA IN 1977/TREATED WITH PCN) Hx Renal Disease (ESRD): No Hx Thyroid Disease: No Hx Human Immunodeficiency Virus (HIV): No ( NEGATIVE HX ) Hx Hepatitis C: Yes Hx Depression: Yes (DUE TO LIFE SITUATION) Hx Suicide Attempt: No Hx Bipolar Disorder: No Hx Schizophrenia: No - Patient Surgical History Past Surgical History: Yes Hx Neurologic Surgery: No Hx Cataract Extraction: No Hx Cardiac Surgery: No Hx Lung Surgery: No Hx Breast Surgery: No Hx Breast Biopsy: No Hx Abdominal Surgery: Yes (umbilical hernia repair in 1997) Hx Appendectomy: No Hx Cholecystectomy: No Hx Genitourinary Surgery: No Hx Section: No Hx Orthopedic Surgery: No Other Surgical History: UMBILICAL HERNIA -1997 Anesthesia Reaction: No - PPD History Previous Implant?: No Documented Results: Negative w/proof Implanted On Prior [facility] Admission?: No Date: 06/20/16 Results: 0 mm PPD to be Administered?: Yes - Smoking Cessation Smoking history: Current every day smoker Have you smoked in the past 12 months: Yes Aproximately how many cigarettes per day: 15 Cigars Per Day: 0 Hx Chewing Tobacco Use: No Initiated information on smoking cessation: Yes 'Breaking Loose' booklet given: 09/18/19 - Substance & Tx. History Hx Alcohol Use: No Hx Substance Use: Yes Substance Use Type: Cocaine, Heroin Hx Substance Use Treatment: Yes (Detox xomplted today at [facility] ) - Substances abused Cocaine Substance route: Smoking Frequency: Daily Amount used: 1.5 grams Age of first use: 16 Date of last use: 09/12/19 Heroin Substance route: Inhalation Frequency: Daily Amount used: 10 bags Age of first use: 17 Date of last use: 09/12/19 Admission Physical Exam BHS - Vital Signs Vital Signs: Vital Signs - 24 hr 09/18/19 15:22 Temperature 98.6 F Pulse Rate 53 L Respiratory 16 Rate Blood Pressure 115/77 - Physical General Appearance: Yes: Appropriately Dressed, Anxious HEENTM: Yes: EOMI, Hearing grossly Normal, Normal ENT Inspection, Normocephalic , Normal Voice, DUDLEY, Pharynx Normal, Tm's normal Respiratory: Yes: Within Normal Limits Neck: Yes: Within Normal Limits Breast: Yes: Breast Exam Deferred Cardiology: Yes: Regular Rhythm, Regular Rate Abdominal: Yes: Normal Bowel Sounds, Non Tender, Flat, Soft Genitourinary: Yes: Within Normal Limits Back: Yes: Normal Inspection Musculoskeletal: Yes: full range of Motion, Gait Steady, Pelvis Stable Extremities: Yes: Normal Capillary Refill, Normal Inspection, Normal Range of Motion, Non-Tender Neurological: Yes: community relations advisor II-XII NML intact, Fully Oriented, Alert, Motor Strength 5/5, Normal Mood/Affect, Normal Response Integumentary: Yes: Within Normal Limits Lymphatic: Yes: Within Normal Limits - Diagnostic (1) Opioid dependence, uncomplicated Current Visit: Yes Status: Acute (2) Cocaine dependence Current Visit: Yes Status: Acute Qualifiers: Substance use status: uncomplicated Qualified Code(s): F14.20 - Cocaine dependence, uncomplicated (3) Nicotine dependence Current Visit: Yes Status: Acute Qualifiers: Nicotine product type: cigarettes Substance use status: in withdrawal Qualified Code(s): F17.213 - Nicotine dependence, cigarettes, with withdrawal Breathalyzer - Breathalyzer Breathalyzer: 0 Urine Drug Screen - Test Device Lot number: [id number] Expiration date: 05/28/21 - Control Is test valid?: Yes - Results Drug screen NEGATIVE: No Urine drug screen results: MTD-Methadone Inpatient Rehab Admission - Rehab Decision to Admit Inpatient rehab admission?: Yes - Initial Determination Are CD services needed?: Yes Free of communicable disease: Yes Not in need of hospitalization: Yes - Rehab Admission Criteria Previous failed treatment: Yes Poor recovery environment: Yes Comorbidities: Yes Lacks judgement: Yes Patient is meeting Inpatient Rehab admission criteria:: Yes
[2019-09-18] MEDS ORDERED: LOPERAMIDE HCL 2 MG CAPSULE PO PRN (18:07)
[2019-09-18] MEDS ORDERED: guaiFENesin 200 MG/10 ML 10 ML UNIT-DOSE CUPS PO PRN (18:07)
[2019-09-18] MEDS ORDERED: MAGNESIUM HYDROX 2400MG/30ML ORAL SUSPENSION 30 ML CUP PO PRN (18:07)
[2019-09-18] MEDS ORDERED: IBUPROFEN 400 MG TABLET (FP) PO PRN (18:07)
[2019-09-18] MEDS ORDERED: NICOTINE POLACRILEX 2 MG GUM BUC PRN (18:07)
[2019-09-18] MEDS ORDERED: MAG HYDROX/AL HYDROX/SIMETH 30 ML UNIT-DOSE CUP PO PRN (18:07)
[2019-09-18] MEDS ORDERED: MENTHOL/PHENOL 1 EACH UD MM PRN (18:07)
[2019-09-18] MEDS ORDERED: MAGNESIUM CITRATE 300 ML BOTTLE PO PRN (18:07)
[2019-09-18] MEDS ORDERED: P-EPHED 60MG/TRIPROLIDI 2.5MG TABLET PO PRN (18:07)
[2019-09-18] MEDS: THIAMINE HCL 100 MG TABLET (FP) PO SCH (21:49)
[2019-09-18] MEDS ORDERED: diphenhydrAMINE HCL 25 MG CAPSULE (FP) PO ONE (22:00)
--- NOTE | 2019-09-19 08:55 | CONSULT ---
[facility] Psychiatric Consult - Data Date of interview: 09/19/19 Admission source: [facility] Identifying data: Patient is a 58 year old single male, father of one, unemployed, domiciled, and is supported by [facility]. This is one of multiple admissions for patient. Patient admitted to for cocaine and opiate dependence. Substance Abuse History: - Smoking Cessation. Smoking history: Current every day smoker. Have you smoked in the past 12 months: Yes. Aproximately how many cigarettes per day: 15. Cigars Per Day: 0. Hx Chewing Tobacco Use: No. Initiated information on smoking cessation: Yes. 'Breaking Loose' booklet given : 09/18/19. - Substance & Tx. History. Hx Alcohol Use: No. Hx Substance Use: Yes. Substance Use Type: Cocaine, Heroin. Hx Substance Use Treatment: Yes ( Detox xomplted [facility] ). - Substances abused. Cocaine. Substance route: Smoking. Frequency: Daily. Amount used: 1.5 grams. Age of first use: 16. Date of last use: 09/12/19. Heroin. Substance route: Inhalation. Frequency: Daily. Amount used: 10 bags. Age of first use: 17. Date of last use: 09/12/19 Medical History: hypertension, umbilical hernia repair in 1997, Gonorrhea in 1977/ treated with PCN. Psychiatric History: Patient denies history of psychiatric hospitalizations, and suicide attempt. Reports only receiving psychiatric treatment when admitted to detox/rehab facilities ([facility]). As per Dr. Samaniego note in 2017 patient reported multiple psychiatric hospitalizations ([facility] x 2 in 2013 and one admission to [facility] in 2016. Diagnosed with MDD and prescribed celexa 10 mg. Patient informed of previous assessments and he insisted that he's never been hospitalized. Stated that he was offered celexa in rehab in the past but he refused to accept the medication. Patient denies history of suicide attempt. At present patient reports stable mood and is sleeping well. Physical/Sexual Abuse/Trauma History: denies. Mental Status Exam - Mental Status Exam Alert and Oriented to: Time, Place, Person Cognitive Function: Good Patient Appearance: Well Groomed Mood: Euthymic Affect: Appropriate Patient Behavior: Appropriate, Cooperative Speech Pattern: Appropriate Voice Loudness: Normal Thought Process: Goal Oriented Thought Disorder: Not Present Hallucinations: Denies Suicidal Ideation: Denies Homicidal Ideation: Denies Insight/Judgement: Poor Sleep: Fair Appetite: Fair Muscle strength/Tone: Normal Gait/Station: Normal Psychiatric Findings - Problem List ([place] 1, 2,3) (1) Cocaine dependence Current Visit: Yes Status: Acute Qualifiers: Substance use status: uncomplicated Qualified Code(s): F14.20 - Cocaine dependence, uncomplicated (2) Opioid dependence, uncomplicated Current Visit: Yes Status: Acute - Initial Treatment Plan Initial Treatment Plan: Psychoeducation provided. Rehab in progress. Observation.
[2019-09-19] MEDS: PRENATAL VITAMINS W/ FOLIC ACID TABLET (FP) PO SCH (10:38)
[2019-09-19] MEDS: NICOTINE 14 MG/24 HOURS TOPICAL PATCH TD SCH (10:38)
--- NOTE | 2019-09-19 12:17 | EKG ---
Test Reason : Blood Pressure : / mmHG Vent. Rate : 041 BPM Atrial Rate : 041 BPM P-R Int : 160 ms QRS Dur : 080 ms QT Int : 500 ms P-R-T Axes : 064 056 -22 degrees QTc Int : 412 ms MARKED SINUS BRADYCARDIA CANNOT RULE OUT ANTERIOR INFARCT , AGE UNDETERMINED ABNORMAL ECG WHEN COMPARED WITH ECG OF 17-MAY-2017 13:09, INVERTED T WAVES HAVE REPLACED NONSPECIFIC T WAVE ABNORMALITY IN INFERIOR LEADS Confirmed by ANTHONY TOWNSEND MD ([id number]) on 09/19/2019 12:17:11 PM Referred By: Confirmed By:ANTHONY TOWNSEND MD
[2019-09-19 12:31] LABS: HEMATOCRIT 40.4 % (35.4-49); HEMOGLOBIN 13.4 GM/dL (11.7-16.9); MCH 31.5 pg (25.7-33.7); MCHC 33.2 g/dl (32.0-35.9); MEAN PLT VOLUME 9.1 fl (7.5-11.1); PLATELET COUNT 181 K/MM3 (134-434); RBC 4.26 M/mm3 (4.00-5.60); RDW 14.8 % (11.9-15.9); WHITE BLOOD COUNT 3.9 K/mm3 (4.0-10.0)
[2019-09-19 12:46] LABS: ALBUMIN 3.3 g/dl (3.4-5.0); BILIRUBIN,TOTAL 0.4 mg/dL (0.2-1); CALCIUM 8.7 mg/dL (8.5-10.1); CREATININE 1.2 mg/dL (0.55-1.3); POTASSIUM 4.1 mmol/L (3.5-5.1)
--- NOTE | 2019-09-19 15:10 | PN ---
[facility] Progress Note Note: Laboratory Tests 09/19/19 09/19/19 08:18 08:18 WBC 3.9 L RBC 4.26 Hgb 13.4 Hct 40.4 MCV 95.0 MCH 31.5 MCHC 33.2 RDW 14.8 Plt Count 181 MPV 9.1 Sodium 141 Potassium 4.1 Chloride 107 Carbon Dioxide 29 Anion Gap 4 L BUN 12.0 Creatinine 1.2 Est GFR (CKD-EPI)AfAm 75.72 Est GFR (CKD-EPI)NonAf 65.33 Random Glucose 146 H Calcium 8.7 Total Bilirubin 0.4 AST 15 ALT 16 Alkaline Phosphatase 50 Total Protein 6.0 L Albumin 3.3 L Patient given lab results. HIV/RPR results pending.
[2019-09-19 15:14] LABS: PH,URINE >= 9.0 (5.0-8.0); URINE APPEARANCE CLEAR; URINE BILIRUBIN NEGATIVE (NEGATIVE); URINE COLOR YELLOW; URINE GLUCOSE (UA) NEGATIVE (NEGATIVE); URINE KETONE NEGATIVE (NEGATIVE); URINE LEUK ESTERASE NEGATIVE (NEGATIVE); URINE NITRITE NEGATIVE (NEGATIVE); URINE PROTEIN NEGATIVE (NEGATIVE)
[2019-09-19] MEDS: THIAMINE HCL 100 MG TABLET (FP) PO SCH (21:17)
[2019-09-19] MEDS: MELATONIN 5 MG TABLETS PO PRN (21:17)
[2019-09-20] MEDS: hydrOXYzine PAMOATE 25 MG CAPSULE (FP) PO PRN (01:49)
[2019-09-20] MEDS: NICOTINE 14 MG/24 HOURS TOPICAL PATCH TD SCH (10:00)
[2019-09-20] MEDS: PRENATAL VITAMINS W/ FOLIC ACID TABLET (FP) PO SCH (10:00)
[2019-09-20] MEDS: MELATONIN 5 MG TABLETS PO PRN (21:45)
[2019-09-20] MEDS: THIAMINE HCL 100 MG TABLET (FP) PO SCH (21:45)
[2019-09-21] MEDS: PRENATAL VITAMINS W/ FOLIC ACID TABLET (FP) PO SCH (09:38)
[2019-09-21] MEDS: NICOTINE 14 MG/24 HOURS TOPICAL PATCH TD SCH (09:38)
[2019-09-21] MEDS: COLLOIDAL OATMEAL 1 BAR EACH TP PRN (09:39)
[2019-09-21] MEDS: THIAMINE HCL 100 MG TABLET (FP) PO SCH (21:04)
[2019-09-21] MEDS: MELATONIN 5 MG TABLETS PO PRN (21:05)
[2019-09-22] MEDS: PRENATAL VITAMINS W/ FOLIC ACID TABLET (FP) PO SCH (10:16)
[2019-09-22] MEDS: NICOTINE 14 MG/24 HOURS TOPICAL PATCH TD SCH (10:16)
--- NOTE | 2019-09-22 12:36 | PN ---
[facility] Progress Note Note: Laboratory Tests 09/19/19 09/19/19 09/19/19 08:18 08:18 08:18 WBC 3.9 L RBC 4.26 Hgb 13.4 Hct 40.4 MCV 95.0 MCH 31.5 MCHC 33.2 RDW 14.8 Plt Count 181 MPV 9.1 Sodium 141 Potassium 4.1 Chloride 107 Carbon Dioxide 29 Anion Gap 4 L BUN 12.0 Creatinine 1.2 Est GFR (CKD-EPI)AfAm 75.72 Est GFR (CKD-EPI)NonAf 65.33 Random Glucose 146 H Calcium 8.7 Total Bilirubin 0.4 AST 15 ALT 16 Alkaline Phosphatase 50 Total Protein 6.0 L Albumin 3.3 L Urine Color Urine Appearance Urine pH Ur Specific [place] Urine Protein Urine Glucose (UA) Urine Ketones Urine Blood Urine Nitrite Urine Bilirubin Urine Urobilinogen Ur Leukocyte Esterase RPR Titer Nonreactive HIV 1&2 Antibody Screen HIV P24 Antigen 09/19/19 09/19/19 11:10 12:35 WBC RBC Hgb Hct MCV MCH MCHC RDW Plt Count MPV Sodium Potassium Chloride Carbon Dioxide Anion Gap BUN Creatinine Est GFR (CKD-EPI)AfAm Est GFR (CKD-EPI)NonAf Random Glucose Calcium Total Bilirubin AST ALT Alkaline Phosphatase Total Protein Albumin Urine Color Yellow Urine Appearance Clear Urine pH >= 9.0 H D Ur Specific [place] 1.016 Urine Protein Negative Urine Glucose (UA) Negative Urine Ketones Negative Urine Blood Negative Urine Nitrite Negative Urine Bilirubin Negative Urine Urobilinogen 1.0 Ur Leukocyte Esterase Negative RPR Titer HIV 1&2 Antibody Screen Negative HIV P24 Antigen Negative Vital Signs Temperature 98 F 09/22/19 07:22 Pulse Rate 64 09/22/19 07:22 Respiratory Rate 18 09/22/19 03:30 Blood Pressure 121/81 09/22/19 07:22 O2 Sat by Pulse Oximetry (%) Patient given lab results and HIV results.
[2019-09-22] MEDS: hydrOXYzine PAMOATE 25 MG CAPSULE (FP) PO PRN (21:41)
[2019-09-22] MEDS: THIAMINE HCL 100 MG TABLET (FP) PO SCH (21:41)
[2019-09-22] MEDS: MELATONIN 5 MG TABLETS PO PRN (21:41)
[2019-09-22] MEDS: MINERAL OIL/PETROLAT/WATER TOPICAL CREAM 113 GM JAR TP SCH (21:42)
--- NOTE | 2019-09-23 10:16 | PN ---
BHS COWS - Scale Resting Pulse: 0= [place] 80 or Below Sweatin= Chills/Flushing Restless Observation: 0= Sits Still Pupil Size: 0= Normal to Room Light Bone or Joint Aches: 2= Severe Diffuse Aches Runny Nose/ Eye Tearin= Runny Nose/Eyes GI Upset > 30mins: 1= Stomach Cramp Tremor Observation of Outstretched Hands: 2= Slight Tremor Visible Yawning Observation: 0= None Anxiety or Irritability: 1=Feels Anxious/Irritable Goose Flesh Skin: 0=Smooth Skin COWS Score: 9 BHS Progress Note (SOAP) Subjective: Patient requesting suboxone MAT. See below. Was on suboxone previously but admits that he used other drugs while on suboxone, e.g., cocaine. detox from heroin and cocaine at [facility], then came here for rehab. PMHx: Patient is a 58 yo AA male domicile with hx of heroin dependence is here seeking inpatient rehabilitation after completing inpatient detox at [facility]. Reports hx of unintentional opioid overdose x 2 with last episode two years. Reports no significant medical or psychiatric history. Denies SI/HI at this time. Urine tox on admission was positive for methadone. 12/25/2018 12/26/2018 buprenorphine-naloxone 8-2 mg sl film 45 15 Gabriel Schillingo 12/06/2018 12/09/2018 suboxone 8 mg-2 mg sl film 45 15 Armaan Schilling 11/29/2018 12/02/2018 suboxone 8 mg-2 mg sl film 21 7 Mukesh Schillingardo 11/08/2018 11/11/2018 suboxone 8 mg-2 mg sl film 60 20 Gabriel Schillingo 10/18/2018 10/21/2018 suboxone 8 mg-2 mg sl film 60 20 Armaan Schilling 10/11/2018 10/12/2018 suboxone 8 mg-2 mg sl film 30 10 Gabriel Schillingo Prescriptions Dispensed in [place] There are no results for the search terms that you entered. Prescriptions Dispensed in [place] There are no results for the search terms that you entered. Prescriptions Dispensed in [place] There are no results for the search terms that you entered. Prescriptions Dispensed in [place] There are no results for the search terms that you entered. Objective: P/E General: no apparent distress HEENTM: normocephalic, PERRLA, SKin: clear HEART: s1 s2 Lungs: clear Abd; +BS Neuro: CN 2-12 intact. MSK; full weight bearing, full ROM, steady gait. 09/23/19 10:14 Assessment: Withdrawal from opiates; SUboxone MAT 09/23/19 10:20 Plan: Will start suboxone at 2mg/BID. Discussed with patient the need to have a referral for continuation of suboxone MAT. Pt states that his counselor is referring him to [facility].
[2019-09-23] MEDS: PRENATAL VITAMINS W/ FOLIC ACID TABLET (FP) PO SCH (10:24)
[2019-09-23] MEDS: MINERAL OIL/PETROLAT/WATER TOPICAL CREAM 113 GM JAR TP SCH ×2 (10:24→21:36)
[2019-09-23] MEDS: NICOTINE 14 MG/24 HOURS TOPICAL PATCH TD SCH (10:25)
[2019-09-23] MEDS: BUPRENORPHINE/NALOXONE 2 MG/0.5 MG FILM PACKET SL SCH (14:52)
[2019-09-23] MEDS: THIAMINE HCL 100 MG TABLET (FP) PO SCH (21:35)
[2019-09-23] MEDS: MELATONIN 5 MG TABLETS PO PRN (21:35)
[2019-09-24] MEDS: hydrOXYzine PAMOATE 25 MG CAPSULE (FP) PO PRN ×3 (00:48→23:43)
[2019-09-24] MEDS: PRENATAL VITAMINS W/ FOLIC ACID TABLET (FP) PO SCH (10:16)
[2019-09-24] MEDS: BUPRENORPHINE/NALOXONE 2 MG/0.5 MG FILM PACKET SL SCH (10:18)
[2019-09-24] MEDS: NICOTINE 14 MG/24 HOURS TOPICAL PATCH TD SCH (10:21)
[2019-09-24] MEDS: COLLOIDAL OATMEAL 1 BAR EACH TP PRN (10:22)
[2019-09-24] MEDS: MINERAL OIL/PETROLAT/WATER TOPICAL CREAM 113 GM JAR TP SCH ×2 (10:43→21:33)
--- NOTE | 2019-09-24 10:55 | PN ---
BHS COWS - Scale Resting Pulse: 0= [place] 80 or Below Sweatin= No chills or Flushing Restless Observation: 0= Sits Still Pupil Size: 0= Normal to Room Light Bone or Joint Aches: 1= Mild Discomfort Runny Nose/ Eye Tearin= Runny Nose/Eyes GI Upset > 30mins: 1= Stomach Cramp Tremor Observation of Outstretched Hands: 1= Tremor Mor[place], Not Seen Yawning Observation: 0= None Anxiety or Irritability: 1=Feels Anxious/Irritable Goose Flesh Skin: 0=Smooth Skin COWS Score: 6 BHS Progress Note (SOAP) Subjective: Client reports still feeling cravings Objective: P/E General: slightly anxious HEENTM: PERRLA, normocelphaic Heart: s1 s2 Lungs: clear Neuro: Cn 2-12 intact 09/24/19 10:54 Assessment: Withdrawal from opiates 09/24/19 10:55 Plan: Will increase suboxone.
[2019-09-24] MEDS ORDERED: BUPRENORPHINE/NALOXONE 2 MG/0.5 MG FILM PACKET SL ONE (17:00)
[2019-09-24] MEDS: MELATONIN 5 MG TABLETS PO PRN (21:33)
[2019-09-24] MEDS: THIAMINE HCL 100 MG TABLET (FP) PO SCH (21:33)
[2019-09-25] MEDS: NICOTINE 14 MG/24 HOURS TOPICAL PATCH TD SCH (09:50)
[2019-09-25] MEDS: PRENATAL VITAMINS W/ FOLIC ACID TABLET (FP) PO SCH (09:50)
[2019-09-25] MEDS: BUPRENORPHINE/NALOXONE 4 MG/1 MG FILM PACKET SL SCH (09:52)
[2019-09-25] MEDS: MINERAL OIL/PETROLAT/WATER TOPICAL CREAM 113 GM JAR TP SCH ×2 (09:53→21:24)
[2019-09-25] MEDS: MELATONIN 5 MG TABLETS PO PRN (21:23)
[2019-09-25] MEDS: THIAMINE HCL 100 MG TABLET (FP) PO SCH (21:23)
[2019-09-25] MEDS: hydrOXYzine PAMOATE 25 MG CAPSULE (FP) PO PRN (21:24)
[2019-09-26] MEDS: MINERAL OIL/PETROLAT/WATER TOPICAL CREAM 113 GM JAR TP SCH ×2 (09:37→22:48)
[2019-09-26] MEDS: NICOTINE 14 MG/24 HOURS TOPICAL PATCH TD SCH (09:37)
[2019-09-26] MEDS: PRENATAL VITAMINS W/ FOLIC ACID TABLET (FP) PO SCH (09:37)
[2019-09-26] MEDS: BUPRENORPHINE/NALOXONE 4 MG/1 MG FILM PACKET SL SCH (09:37)
[2019-09-26] MEDS: MELATONIN 5 MG TABLETS PO PRN (22:51)
[2019-09-26] MEDS: hydrOXYzine PAMOATE 25 MG CAPSULE (FP) PO PRN (22:51)
[2019-09-26] MEDS: COLLOIDAL OATMEAL 1 BAR EACH TP PRN (22:51)
[2019-09-26] MEDS: THIAMINE HCL 100 MG TABLET (FP) PO SCH (22:51)
[2019-09-27] MEDS ORDERED: PT OWN MED DRAWER 7, Y5N ONE (08:49)
[2019-09-27] MEDS: BUPRENORPHINE/NALOXONE 4 MG/1 MG FILM PACKET SL SCH (09:26)
[2019-09-27] MEDS: MINERAL OIL/PETROLAT/WATER TOPICAL CREAM 113 GM JAR TP SCH ×2 (09:26→21:06)
[2019-09-27] MEDS: NICOTINE 14 MG/24 HOURS TOPICAL PATCH TD SCH (09:26)
[2019-09-27] MEDS: PRENATAL VITAMINS W/ FOLIC ACID TABLET (FP) PO SCH (09:26)
[2019-09-27] MEDS: MELATONIN 5 MG TABLETS PO PRN (21:05)
[2019-09-27] MEDS: THIAMINE HCL 100 MG TABLET (FP) PO SCH (21:05)
[2019-09-27] MEDS: hydrOXYzine PAMOATE 25 MG CAPSULE (FP) PO PRN (21:06)
[2019-09-28] MEDS: NICOTINE 14 MG/24 HOURS TOPICAL PATCH TD SCH (09:04)
[2019-09-28] MEDS: BUPRENORPHINE/NALOXONE 4 MG/1 MG FILM PACKET SL SCH (09:04)
[2019-09-28] MEDS: PRENATAL VITAMINS W/ FOLIC ACID TABLET (FP) PO SCH (09:04)
[2019-09-28] MEDS: MINERAL OIL/PETROLAT/WATER TOPICAL CREAM 113 GM JAR TP SCH ×2 (09:04→21:38)
[2019-09-28] MEDS: MELATONIN 5 MG TABLETS PO PRN (21:38)
[2019-09-28] MEDS: THIAMINE HCL 100 MG TABLET (FP) PO SCH (21:38)
[2019-09-28] MEDS: hydrOXYzine PAMOATE 25 MG CAPSULE (FP) PO PRN (21:39)
[2019-09-29] MEDS: PRENATAL VITAMINS W/ FOLIC ACID TABLET (FP) PO SCH (09:01)
[2019-09-29] MEDS: BUPRENORPHINE/NALOXONE 4 MG/1 MG FILM PACKET SL SCH (09:02)
[2019-09-29] MEDS: MINERAL OIL/PETROLAT/WATER TOPICAL CREAM 113 GM JAR TP SCH ×2 (09:02→22:00)
[2019-09-29] MEDS: NICOTINE 14 MG/24 HOURS TOPICAL PATCH TD SCH (09:02)
[2019-09-29] MEDS: COLLOIDAL OATMEAL 1 BAR EACH TP PRN (10:41)
--- NOTE | 2019-09-29 12:46 | PN ---
[facility] Progress Note Note: Patient scheduled for discharge from rehab in am. Patient states he accomplished all goals and is motivated to stay sober. Patient started on Suboxone during admission for opiod use disorder, attended group meetings and evaluated and treated by psych. Patient is medically stable and denies SI/HI. Vital Signs (72 hours) 09/27/19 09/27/19 09/27/19 00:30 03:30 06:51 Temperature 98.0 F Pulse Rate 65 Respiratory 18 18 18 Rate Blood Pressure 137/82 09/28/19 09/29/19 09/29/19 06:58 00:30 03:30 Temperature 97.6 F Pulse Rate 58 L Respiratory 18 18 18 Rate Blood Pressure 150/99 09/29/19 07:19 Temperature 97.6 F Pulse Rate 70 Respiratory 18 Rate Blood Pressure 130/97 Ambulatory Orders Buprenorphine HCl/Naloxone HCl [Suboxone 4 mg-1 mg Sl Film] 1 each SL DAILY #8 film MDD 4mg 09/29/19 Laboratory Tests 09/19/19 09/19/19 09/19/19 08:18 08:18 08:18 WBC 3.9 L RBC 4.26 Hgb 13.4 Hct 40.4 MCV 95.0 MCH 31.5 MCHC 33.2 RDW 14.8 Plt Count 181 MPV 9.1 Sodium 141 Potassium 4.1 Chloride 107 Carbon Dioxide 29 Anion Gap 4 L BUN 12.0 Creatinine 1.2 Est GFR (CKD-EPI)AfAm 75.72 Est GFR (CKD-EPI)NonAf 65.33 POC Glucometer Random Glucose 146 H Calcium 8.7 Total Bilirubin 0.4 AST 15 ALT 16 Alkaline Phosphatase 50 Total Protein 6.0 L Albumin 3.3 L Urine Color Urine Appearance Urine pH Ur Specific Newcomb Urine Protein Urine Glucose (UA) Urine Ketones Urine Blood Urine Nitrite Urine Bilirubin Urine Urobilinogen Ur Leukocyte Esterase RPR Titer Nonreactive HIV 1&2 Antibody Screen HIV P24 Antigen 09/19/19 09/19/19 09/23/19 11:10 12:35 06:30 WBC RBC Hgb Hct MCV MCH MCHC RDW Plt Count MPV Sodium Potassium Chloride Carbon Dioxide Anion Gap BUN Creatinine Est GFR (CKD-EPI)AfAm Est GFR (CKD-EPI)NonAf POC Glucometer 93 Random Glucose Calcium Total Bilirubin AST ALT Alkaline Phosphatase Total Protein Albumin Urine Color Yellow Urine Appearance Clear Urine pH >= 9.0 H D Ur Specific Newcomb 1.016 Urine Protein Negative Urine Glucose (UA) Negative Urine Ketones Negative Urine Blood Negative Urine Nitrite Negative Urine Bilirubin Negative Urine Urobilinogen 1.0 Ur Leukocyte Esterase Negative RPR Titer HIV 1&2 Antibody Screen Negative HIV P24 Antigen Negative ROS: denies sweating, n/v/d, shakes and opiod cravings. PE: alert and oriented x 3 skin warm and dry +perrla, eoms intact bl car s1s2, rrr resp cta bl, no wheezes, rhonchi ext no tremors, amb ad bandar full rom A/P: Opiod use disorder Suboxone MAT medically stable for discharge in am aftercare arranged for 10/02/19 at 11am at [facility] suboxone prescription sent for one week to preferred pharmacy
[2019-09-29] MEDS: THIAMINE HCL 100 MG TABLET (FP) PO SCH (21:13)
[2019-09-29] MEDS: MELATONIN 5 MG TABLETS PO PRN (21:13)
[2019-09-30 06:47] VITALS: BP 127/86; PULSE 59; TEMP 98.1
== END 2019-09-30 07:00 | disposition home or self-care (01) | DRG 772 ==
LOC: YASAS 13:49 → Y3W 19:03
PROVIDERS: ADMIT Neuromusculoskeletal Medicine & OMM; ATTEND Neuromusculoskeletal Medicine & OMM
PROC: HZ42ZZZ Group Counseling for Substance Abuse Treatment, Cognitive-Behavioral (ICD-10-PCS; principal; 2019-09-18)
DX: F11.20 Opioid dependence, uncomplicated (principal); F14.20 Cocaine dependence, uncomplicated; F17.210 Nicotine dependence, cigarettes, uncomplicated; F32.9 Major depressive disorder, single episode, unspecified; I10 Essential (primary) hypertension; B18.2 Chronic viral hepatitis C; Z86.19 Personal history of other infectious and parasitic diseases; Z98.890 Other specified postprocedural states
CPT/HCPCS: 36415; 80053; 81003; 82962; 85027; 86593; 87389; 93005; 93010